=== PATIENT | male | born 2000 | race Caucasian/White ===

== ENCOUNTER 2023-06-17 03:10 | Emergency (ER) | payer BC ==
[2023-06-17] MEDS: Lidocaine 1% 10 ML MDV INJECT ONE (04:10)
== END 2023-06-17 04:00 | disposition home or self-care (01) ==
LOC: VM.ED 03:10
DX: S01.112A Laceration without foreign body of left eyelid and periocular area, initial encounter (principal); W51.XXXA Accidental striking against or bumped into by another person, initial encounter
CPT/HCPCS: 12013; 99282; J3490